=== PATIENT | male | born 1995 | race Caucasian/White ===

== ENCOUNTER 2021-04-23 12:15 | Emergency (ER) | payer MEDICAID ==
[~2021-04-23] VITALS: Ht 182.9 cm; Wt 90.7 kg
--- NOTE | 2021-04-23 12:15 | NUR ---
PT HAS A LACERATION ON L EAR FROM FALLING OFF OF HIS SKATEBOARDING THE PREVIOUS NIGHT. PT IS A&OX4 AND STABLE. VITAL SIGNS WITHIN NORMAL LIMITS.
[2021-04-23] MEDS ORDERED: LIDOCAINE 0.5% HCL 50 ML VIAL ONE (14:56)
[2021-04-23] MEDS ORDERED: GENTAMICIN 0.1% OINT 15 GM TUBE TP ONE ×2 (15:00→15:08)
[2021-04-23] MEDS ORDERED: TDAP [DIPH/PERTUSSIS/TET] 0.5 ML VIAL IM ONE ×2 (15:00→15:09)
[2021-04-23] MEDS ORDERED: CEPHALEXIN MONOHYDRATE 500 MG CAPSULE PO ONE ×2 (15:00→15:08)
[2021-04-23] MEDS ORDERED: HYDROCODONE/APAP 5/325MG TABLET PO ONE (15:00)
[2021-04-23] MEDS ORDERED: LIDOCAINE 2% JEL UROJET 10 ML MM ONE ×2 (15:00→15:07)
[2021-04-23] MEDS ORDERED: HYDROCODONE/APAP 5/325MG TABLET ONE (15:08)
[2021-04-23] MEDS ORDERED: CEPH750C7 PO (16:15)
--- NOTE | 2021-04-23 16:33 | NUR ---
L EAR LACERATION REPAIR DONE. 3 SUTURES IN PLACED. WOUND CARE PROVIDED. PT DISCHARGED IN STABLE CONDITION.
[2021-04-23 16:38] VITALS: BP 138/77
== END 2021-04-23 16:41 | disposition home or self-care (01) ==
LOC: ER 14:11
DX: S01.312A Laceration without foreign body of left ear, initial encounter (principal); F17.200 Nicotine dependence, unspecified, uncomplicated; V00.131A Fall from skateboard, initial encounter; Y93.51 Activity, roller skating (inline) and skateboarding; Y92.331 Roller skating rink as the place of occurrence of the external cause; Y99.8 Other external cause status
CPT/HCPCS: 12013; 90471; 90715; 99283; A6403; J3490 ×2